=== PATIENT | female | born 1995 | race African-American/Black ===

== ENCOUNTER 2017-02-16 18:21 | Emergency (ER) | payer SELFPAY ==
[2017-02-16 19:58] LABS: #Monocytes 0.9 thou/uL (0.11-0.59); #Neutrophils 12.3 thou/uL (1.40-6.50); %Basophils 0.1 % (0.0-1.0); %Eosinophils 0.2 % (0.0-10.0); %Lymphocytes 7.2 % (21.0-51.0); %Monocytes 6.5 % (0.0-10.0); Hematocrit 41.1 % (36.0-47.0); Red Blood Cell (RBC) Count 4.26 mill/uL (4.20-5.40); White Blood Cell (WBC) Count 14.3 thou/uL (4.8-10.8)
[2017-02-16 20:24] LABS: ALT (SGPT) 11 U/L (8-55); AST (SGOT) 15 U/L (5-34); Alkaline Phosphatase 50 U/L (40-150); Anion Gap 13 mmol/L (10-20); BUN (Urea Nitrogen) 9 mg/dL (7.0-18.7); Bilirubin, Total 0.7 mg/dL (0.2-1.2); Calc. Creatinine Clearance 0 mL/min (70-130); Calcium 9.2 mg/dL (7.8-10.44); Carbon Dioxide 25 mmol/L (22-29); Chloride 100 mmol/L (98-107); Estimated GFR-MDRD Greater than 90; Globulin 3.4 g/dL (2.4-3.5); Lipase 22 U/L (8-78); Protein, Total 7.7 g/dL (6.0-8.3)
[2017-02-16 20:26] LABS: Bilirubin Negative (Negative); Blood, Urine Negative (Negative); Glucose, Urine (Dipstick) Negative (Negative); Ketone, Urine 40 mg/dL (Negative); Nitrite Negative (Negative); Protein, Urine (Dipstick) 100 mg/dL (Neg-Trace)
== END 2017-02-16 20:51 | disposition home or self-care (01) ==
LOC: ERS 18:21
DX: O99.281 Endocrine, nutritional and metabolic diseases complicating pregnancy, first trimester (principal); E86.0 Dehydration; O99.341 Other mental disorders complicating pregnancy, first trimester; F32.9 Major depressive disorder, single episode, unspecified; F41.9 Anxiety disorder, unspecified
CPT/HCPCS: 36415; 80053; 81003; 81015; 81025; 83690; 84703; 85025; 96360; 96361

== ENCOUNTER 2017-03-15 08:39 | Emergency (ER) | payer SELFPAY ==
[2017-03-15 10:55] LABS: Bilirubin Negative (Negative); Blood, Urine Negative (Negative); Glucose, Urine (Dipstick) Negative (Negative); Ketone, Urine Negative (Negative); Nitrite Negative (Negative); Protein, Urine (Dipstick) Negative (Neg-Trace); Urobilinogen 0.2 mg/dL (0.2-1.0)
== END 2017-03-15 10:37 | disposition home or self-care (01) ==
LOC: ERS 08:39
DX: O99.89 Other specified diseases and conditions complicating pregnancy, childbirth and the puerperium (principal); M54.9 Dorsalgia, unspecified; Z3A.11 11 weeks gestation of pregnancy; W01.0XXA Fall on same level from slipping, tripping and stumbling without subsequent striking against object, initial encounter
CPT/HCPCS: 81003

== ENCOUNTER 2017-05-09 11:34 | Emergency (ER) | payer OTHER, SELFPAY | END 2017-05-09 14:08 | disposition home or self-care (01) | LOC: ERS 11:34 | DX: O9A.212 Injury, poisoning and certain other consequences of external causes complicating pregnancy, second trimester (principal); S39.91XA Unspecified injury of abdomen, initial encounter; O99.344 Other mental disorders complicating childbirth; F41.9 Anxiety disorder, unspecified; F32.9 Major depressive disorder, single episode, unspecified; Z3A.20 20 weeks gestation of pregnancy ==

== ENCOUNTER 2017-06-16 16:57 | Day surgery (SDC) | payer OTHER ==
[2017-06-16 17:43] VITALS: BMI 22.1
--- NOTE | 2017-06-16 18:53 | PDOC.LDHP ---
Labor and Delivery H&P Chief complaint: contractions HPI: 22 y/o @ 25.1 WGA by LMP presents due to uncomfortable contractions that started last night around 8:30 pm. She reports that they are more frequent when she is up moving around and they decrease in frequency whenever she is resting. She has decreased movement whenever she is feeling these contractions, but has good movement whenever she rests. She has never had this happen before. Reports no LOF, no vaginal bleeding or discharge. She denies H/A, N/V, edema. Current gestational age (weeks): 25 (1 day) Due date: 09/28/17 Dating criteria: last menstrual period Grav: 4 Para: 0 OB History Details: 3 first trimester SAB's, two with the same father and one with a different father. The most recent one required a D&C. Current complications: none Abnormal US findings: No Past Medical History: Depression, Anxiety Current medications: pre-shawn vitamins Previous surgical history: dilation and curettage Allergies/Adverse Reactions: Allergies Allergy/AdvReac Type Severity Reaction Status Date / Time Penicillins Allergy Severe Verified 06/16/17 17:30 Hives Social history: none - Physical Exam Vital signs reviewed and normal: yes General: NAD Heart: RRR Lungs: CTAB Abdomen: gravid Extremeties: no edema FHT: category 1 (accels present), variability present (moderate) [place] contractions every: 5-7 minutes - Vaginal Exam cm dilated: 0 (0.5) Effacement: 50% Station: 0 - OB Labs Blood type: unknown RH: unknown Antibody Screen: unknown HIV: unknown RPR: unknown HEPSAg: unknown 1 hour GCT: unknown 3 hour GTT: unknown GBS: unknown - Assessment Rule-out labor - Fibronectin -Cervical Length -Orally hydrate -External monitoring, toco - Plan Plan: observation in L&D
--- NOTE | 2017-06-16 19:07 | PDOC.EVN ---
Event Note - Event Note Event Note: Patient in Triage in L&D, as a clinic patient. Patient first seen by the Resident adjudication specialist. Chief complaint: possible contractions. HPI: 22 yo [id number] with no HX incompetant cx presents now at 25 weeks 1 day with possible contractions. No recent trauma, no VB, no LOF. No fevers. Review of systems: as per HPI, after complete ROS performed. OB HX: SAB x 3 with D&C X 1 Allergies: PCN Medications: PNV Social: negative x 3 PHYSICAL Exam: afebrile and normaotensive NAD abdomen soft, NT, size appropriate CX: 0.5cm/40/0 (done after FFN) No VB Monitors: FHTS at 140s baseline, no decels. Variability per EGA. [place]: uterine irritability Assessment: Threatened extreme PTL vs discomforts of Plan: 1. FFN sent 2. CX not grossly dilated 3. Sono for EFW and cx length
[2017-06-16 19:35] LABS: FFN Internal QC Analyzer PASS (PASS); FFN Internal QC Cassette PASS (PASS); Fetal Fibronectin Negative (Negative)
--- NOTE | 2017-06-16 20:29 | PDOC.EVN ---
Event Note - Event Note Event Note: Staff lab check: FFN negative. Cervix 2.4cm. Ok for outpatient followup with [facility].
--- NOTE | 2017-06-16 20:54 | ULT ---
LIMITED OB ULTRASOUND 06/16/17 PROVIDED CLINICAL HISTORY: labor. FINDINGS: A single live intrauterine gestation is documented in cephalic presentation with heart rate of 158 be ats per minute documented. The placenta appears posteriorly located without evidence for previa. Amni otic fluid is not quantified but appears qualitatively normal. Cervical length measures approximatel y 2.4 cm. There is no evidence for cervical funneling. Estimated gestational age based on today's examination is 25 weeks, 1 day. Estimated weight is 792 +/- 117 grams. BIOMETRY: BPD 25 weeks, 6 days Head circumference 25 weeks, 5 days Abdominal circumference 25 weeks, 2 days Femur length 25 weeks, 0 days IMPRESSION: Single live intrauterine gestation, 25 weeks, 3 days by ultrasound. The cervix appears shortened with out evidence for funneling. POS: [facility]
== END 2017-06-16 20:30 | disposition home or self-care (01) ==
LOC: L&D/OP 16:57
PROVIDERS: ATTEND Obstetrics & Gynecology
DX: O47.02 False labor before 37 completed weeks of gestation, second trimester (principal); Z88.0 Allergy status to penicillin; Z3A.25 25 weeks gestation of pregnancy; Z79.899 Other long term (current) drug therapy; Z98.890 Other specified postprocedural states
CPT/HCPCS: 76815; 82731; 99282

== ENCOUNTER → 2017-06-19 | Day surgery (SDC) | payer OTHER ==
[~2017-06-19] MED LIST: FLU VACC QS2017-18 36 mo. & older 0.5 ML SYRINGE IM ONE
[2017-06-19 15:44] VITALS: BMI 22.1
--- NOTE | 2017-06-19 16:56 | PDOC.LDHP ---
Labor and Delivery H&P Chief complaint: contractions HPI: 22 yo @ 25.4 WGA by LMP presents due to contractions that started at approximately 14:30 today. She states the contractions have been roughly every 2 -5 minutes and are uncomfortable. She has noted movement that has been normal. She states that this has happened before on 06/16/17 when she came to the hospital for evaluation. She denies vaginal bleeding. She does note some vaginal discharge that was enough to wet her underwear. She denies any long standing vaginal discharge. She denies headache, vision changes, or edema. She does note that she has hyperemesis and vomiting for her is normal. No other concerns this am. Current gestational age (weeks): 25 (4) Due date: 09/28/17 Dating criteria: last menstrual period Grav: 4 Para: 0 OB History Details: 3 first trimester SAB. Most recent one required a D&C Current complications: none Abnormal US findings: No Past Medical History: Anxiety, Depression Current medications: pre- vitamins Previous surgical history: dilation and curettage Social history: none - Physical Exam Vital signs reviewed and normal: yes General: NAD, resting Heart: RRR Lungs: nonlabored breathing Abdomen: gravid Extremeties: no edema FHT: category 1 [place] contractions every: 5 minutes - OB Labs Blood type: unknown RH: unknown Antibody Screen: unknown HIV: unknown RPR: unknown HEPSAg: unknown 1 hour GCT: unknown 3 hour GTT: unknown GBS: unknown Urine drug screen: not done - Assessment Rule out labor -Will not repeat fibronectin since completed on 06/16 -Will not complete cervical length as completed on 06/16 -Orally hydrate and feed -UA -VP3 -External monitoring -Will cervical check after other tests. - Plan Plan: observation in L&D <Markie Mcclelland - Last Filed: 06/19/17 16:54> <Cruz Hernandez - Last Filed: 06/19/17 21:09> Allergies/Adverse Reactions: Allergies Allergy/AdvReac Type Severity Reaction Status Date / Time Penicillins Allergy Severe Verified 06/19/17 15:40 Hives Attending Addendum - Attending Addendum I personally evaluated the patient and discussed the management with Dr. Mcclelland I agree with the History, Examination, Assessment and Plan documented above with any addition or exceptions noted below. Pt was admitted for SROM and onset of labor. Fetus cat 1 GBS neg <Cruz Hernandez - Last Filed: 06/19/17 21:09>
[2017-06-19 17:44] LABS: Bilirubin Negative (Negative); Blood, Urine Negative (Negative); Clarity CLOUDY (Clear); Glucose, Urine (Dipstick) 100 mg/dL (Negative); Leukocyte Negative (Negative); Nitrite Negative (Negative); Protein, Urine (Dipstick) Negative (Neg-Trace); Specific Gravity, Urine 1.008 (1.002-1.036); Urobilinogen 0.2 mg/dL (0.2-1.0)
[2017-06-19 17:46] LABS: Pathc Cast-AUWi Flag 0.13 (0-2.49)
[2017-06-19 17:59] LABS: Bacteria/HPF 1+ HPF (None Seen); Hyaline Casts/LPF NONE SEEN LPF (0-3 Hyaline); RBC/HPF None Seen HPF (0-3); Squamous Epithelial 0-3 HPF (0-3); WBC/HPF 0-3 HPF (0-3)
== END | disposition home or self-care (01) ==
LOC: L&D/OP 15:11
PROVIDERS: ATTEND Obstetrics & Gynecology
DX: O60.02 Preterm labor without delivery, second trimester (principal); O99.342 Other mental disorders complicating pregnancy, second trimester; F41.9 Anxiety disorder, unspecified; F32.9 Major depressive disorder, single episode, unspecified; Z3A.25 25 weeks gestation of pregnancy; Z88.0 Allergy status to penicillin; Z79.899 Other long term (current) drug therapy; Z98.890 Other specified postprocedural states
CPT/HCPCS: 81001; 87086; 87480; 87510; 87660; 99284

== ENCOUNTER 2017-07-28 13:31 | Day surgery (SDC) | payer OTHER ==
[2017-07-28] MEDS ORDERED: Ondansetron ODT 8 MG TAB SL PRN (14:34)
[2017-07-28] MEDS ORDERED: Ondansetron HCl/PF 4 MG/2 ML Vial IVP PRN (14:34)
[2017-07-28] MEDS: Lactated Ringer's 1,000 ML IV SCH ×2 (14:35→15:30)
[2017-07-28] MEDS ORDERED: Betamet Acet/Betamet Na Ph 30 MG/5 ML VIAL IM SCH (14:45)
--- NOTE | 2017-07-28 14:57 | PDOC.LDHP ---
Labor and Delivery H&P Chief complaint: contractions, loss of fluid HPI: Pt c/o stressful "episode" at home this morning (pt will not provide additional details), after which she took a long walk. During this time, she began experiencing severe lower pelvic pain/vaginal pressure along with regular contractions. Symptoms associated with leakage of clear fluid. Denies dysuria, denies foul smelling vaginal discharge, denies recent intercourse. States that she has had issues with nausea over the past several weeks that has resulted in a 8-10 lb weight loss (128 lb @ 28 wk, 120 lb today). She tried diclegis but thought that it made her feel worse and has been scared to take Zofran fearing that it will have a similar effect. Pt freely admits to frequent marajuana use and states that she uses it for her nausea. Current gestational age (weeks): 31 (1 day) Dating criteria: last menstrual period (C/w 15.2 wk sono) Grav: 4 Para: 0 (0030) OB History Details: Hx of SAB x 3 w/ negative APLS workup; same FOB Current complications: other (H/o shortened cervix -- cervical length 2.4cm on 06/16/17 (24 wks); vaginal progesterone not given b/c beyond 24 wks when noted Mild anemia) Abnormal US findings: No Past Medical History: Previous h/o depression H/o STI in 2016 with neg JAIME Current medications: pre- vitamins Previous surgical history: other (D&C x 1) Social history: drug use (THC) - Physical Exam Vital signs reviewed and normal: yes General: other (mild distress; thin appearing) Heart: RRR Lungs: CTAB Abdomen: gravid Extremeties: no edema FHT: category 1 (baselin 150 bpm with accelerations), variability present ( moderate) [place] contractions every: 2-4 min - Vaginal Exam cm dilated: 1 Effacement: 75% (75-80%) Station: 0 - OB Labs Blood type: O RH: positive Antibody Screen: negative HIV: negative RPR: negative HEPSAg: negative 1 hour GCT: negative GBS: unknown Urine drug screen: not done Rubella: immune Additional Labs: Td given 07/22/17 - Assessment L&D Assessment: labor (Possible) - Plan Plan: observation in L&D -: 22 yo @ 31.1 by LMP/15.2 wk sono here for PTL r/o. 1) Place in observation in L&D -FFN, amniosure, VP3, UA, GC/CT, UDS all pending -No obvious pooling or other findings on SSE -Symptomatic management with Zofran and IVF -IV betamethasone for lung protection -Consider tocolysis and Mg for neuroprotection if FFN positive and/or cervical change progressing <Eldon Connors - Last Filed: 07/28/17 14:50> <Cruz Hernandez - Last Filed: 07/29/17 07:31> Allergies/Adverse Reactions: Allergies Allergy/AdvReac Type Severity Reaction Status Date / Time Penicillins Allergy Severe Verified 07/28/17 14:53 Hives Attending Addendum - Attending Addendum Date/Time: 07/29/17727 I personally evaluated the patient and discussed the management with Dr. Connors I agree with the History, Examination, Assessment and Plan documented above with any addition or exceptions noted below. FFN is neg, VP3 neg, ua neg. CL 1.2 cm. Pt felt much better after hydration and zofran. UCx spontaneously resolving. Pt d/cd home. Will return tomorrow for 2nd dose bmtz <Cruz Hernandez - Last Filed: 07/29/17 07:31>
[2017-07-28 14:58] VITALS: BMI 21.9
[2017-07-28 15:09] LABS: Amnisure Internal Control QC ACCEPTABLE (ACCEPTABLE); Amnisure Test No Membranes Rupture (No Rupture)
[2017-07-28 15:16] VITALS: BP 144/93; TEMP 98.6
[2017-07-28 15:29] LABS: FFN Internal QC Analyzer PASS (PASS); FFN Internal QC Cassette PASS (PASS); Fetal Fibronectin Negative (Negative)
[2017-07-28 15:57] LABS: Bilirubin Negative (Negative); Blood, Urine Negative (Negative); Clarity CLEAR (Clear); Glucose, Urine (Dipstick) Negative (Negative); Leukocyte Negative (Negative); Nitrite Negative (Negative); Protein, Urine (Dipstick) Negative (Neg-Trace); Specific Gravity, Urine 1.007 (1.002-1.036); Urobilinogen 0.2 mg/dL (0.2-1.0); pH, Urine 7.5 (5.0-9.0)
[2017-07-28 15:59] LABS: Bacteria/HPF None Seen HPF (None Seen); Hyaline Casts/LPF 0-3 HYALINE CAST LPF (0-3 Hyaline); RBC/HPF 0-3 HPF (0-3); Squamous Epithelial 0-3 HPF (0-3); WBC/HPF 0-3 HPF (0-3)
[2017-07-28 16:08] LABS: Amphetamine Not Detected (NotDetected); Barbiturates Screen Not Detected (NotDetected); Benzodiazepine Screen Not Detected (NotDetected); Cocaine Metabolite Screen Not Detected (NotDetected); Medtox Control Line Valid? VALID (VALID); Medtox Reader # READER 1; Methadone Not Detected (NotDetected); Methamphetamine Not Detected (NotDetected); Opiate Screen Not Detected (NotDetected); Oxycodone Screen Not Detected (NotDetected); Phencyclidine (PCP) Not Detected (NotDetected); THC/Cannabinoid Screen Detected (NotDetected); Tricyclic Screen Not Detected (NotDetected)
[2017-07-28] MEDS ORDERED: Lactated Ringer's 1,000 ML IV SCH (16:15)
[2017-07-28] MEDS ORDERED: FLU VACC QS2017-18 36 mo. & older 0.5 ML SYRINGE IM ONE (16:30)
--- NOTE | 2017-07-28 16:33 | ULT ---
OB ULTRASOUND: HISTORY: Uterine contractions, leaking fluid. FINDINGS: A single live intrauterine gestation is seen with measurements corresponding to estimated gestational age of 32 weeks 0 days and [place] at 09/22/17. The estimated weight measures 1717 gm of 3.13 ounce s. measurements are as follows: BPD 8.16 cm, 32 weeks 6 days HC 29.83 cm, 33 weeks 0 days AC 26.65 cm, 30 weeks 5 days FL 5.92 cm, 30 weeks 6 days heart rate measures 152 b.p.m. MAL measures 8 cm. The placenta is posterior fundal without pl acenta previa. Cervix measures 1.2 cm in length. There is probable swelling in the internal os. IMPRESSION: 1. Single live intrauterine gestation of 32 weeks 0 days and estimated date of delivery at 09/22/17. 2. Amniotic fluid index is 8 cm. 3. Cervical length is 1.2 cm. POS: [facility]
== END 2017-07-28 17:48 | disposition home or self-care (01) ==
LOC: L&D/OP 13:31
PROVIDERS: ATTEND Obstetrics & Gynecology
DX: O47.03 False labor before 37 completed weeks of gestation, third trimester (principal); O99.89 Other specified diseases and conditions complicating pregnancy, childbirth and the puerperium; N89.8 Other specified noninflammatory disorders of vagina; R10.2 Pelvic and perineal pain; R10.9 Unspecified abdominal pain; O26.873 Cervical shortening, third trimester; O99.343 Other mental disorders complicating pregnancy, third trimester; F32.9 Major depressive disorder, single episode, unspecified; Z3A.31 31 weeks gestation of pregnancy; Z79.899 Other long term (current) drug therapy; Z88.0 Allergy status to penicillin
CPT/HCPCS: 76816; 80306; 81001; 82731; 84112; 87081; 87480; 87491; 87510; 87591; 87660; J0702; J2405

== ENCOUNTER → 2017-07-29 | Day surgery (SDC) | payer OTHER ==
[2017-07-29 15:16] VITALS: BMI 21.9
== END ==
LOC: L&D/OP 14:48
PROVIDERS: ATTEND Obstetrics & Gynecology
DX: O09.219 Supervision of pregnancy with history of pre-term labor, unspecified trimester (principal); O26.879 Cervical shortening, unspecified trimester; Z3A.00 Weeks of gestation of pregnancy not specified; Z88.0 Allergy status to penicillin

== ENCOUNTER 2017-08-28 07:06 | Inpatient (IN) | payer OTHER ==
[2017-08-28 07:59] VITALS: BMI 22.8
[2017-08-28] MEDS ORDERED: Diphenoxylate HCl/Atropine Tablet PO PRN ×2 (08:11)
[2017-08-28] MEDS ORDERED: HYDROcodone/Acetaminophen 5/325 mg Tablet PO PRN ×2 (08:11)
[2017-08-28] MEDS ORDERED: Promethazine HCl 25 MG/ML VIAL IM PRN (08:11)
[2017-08-28] MEDS ORDERED: Ibuprofen 800 MG TAB PO PRN (08:11)
[2017-08-28] MEDS ORDERED: Ondansetron HCl/PF 4 MG/2 ML Vial IVP PRN (08:11)
[2017-08-28] MEDS ORDERED: Carboprost 250 MCG/ML AMP IM PRN (08:11)
[2017-08-28] MEDS ORDERED: Lidocaine 1% (PF) 30 ML VIAL SC PRN (08:11)
[2017-08-28] MEDS ORDERED: LR 500 ML/Oxytocin 10 units 500 ML IV SCH (08:15)
[2017-08-28 08:18] LABS: Hemoglobin 12.1 g/dL (12.0-16.0); Mean Corpuscular Hemoglobin 31.8 pg (27.0-31.0); Mean Corpuscular Volume 93.3 fl (81.0-99.0); Mean Platelet Volume 7.5 fL (7.4-10.4); Platelet Count 291 thou/uL (130-400); RBC Distribution Width 12.2 % (11.5-14.5); Red Blood Cell (RBC) Count 3.82 mill/uL (4.20-5.40); White Blood Cell (WBC) Count 12.1 thou/uL (4.8-10.8)
[2017-08-28] MEDS ORDERED: CEFAZOLIN/Water 2 GM/20 ML SYRINGE ONE (08:23)
[2017-08-28] MEDS ORDERED: Bicitra 30 ML UDCUP ONE (08:24)
[2017-08-28 08:47] LABS: HBSAg Index 0.22 S/CO (0-0.99); Hep B Surf Ag Non-Reactive S/CO (NonReactive); Syphilis Antibody Nonreactive (Nonreactive); Syphilis Antibody Index 0.05 S/CO (<1.00 Non-Reactive)
--- NOTE | 2017-08-28 09:16 | PDOC.LDHP ---
Labor and Delivery H&P Chief complaint: contractions, loss of fluid HPI: 22 yo @ 35w4d by LMP c/w 15w2d US. She states last night she had intercourse with her significant other and this morning she woke up around 06: 45 to a large gush of fluid. She states she then began feeling contractions after that and she came to the hospital. She denies vision changes, headaches, and lower extremity edema. She admits to movement and no other vaginal discharge besides the fluid. She also notes no vaginal bleeding. No other complaints today. Current gestational age (weeks): 35 Dating criteria: last menstrual period, first trimester ultrasound Grav: 4 Para: 0 OB History Details: - 3 Spontaneous abortions - 1 D&C - Incompetent cervix Current complications: none Abnormal US findings: No Past Medical History: None Current medications: pre-shawn vitamins Previous surgical history: dilation and curettage (x1) Allergies/Adverse Reactions: Allergies Allergy/AdvReac Type Severity Reaction Status Date / Time Penicillins Allergy Severe Verified 07/29/17 15:15 Hives Social history: none - Physical Exam Vital signs reviewed and normal: yes General: NAD, breathing through contractions Heart: RRR Lungs: nonlabored breathing Abdomen: gravid Extremeties: no edema FHT: category 1 (Moderate variability, Baseline 150s, Positive accellerations, No decelerations.) - Vaginal Exam cm dilated: 4 Effacement: 100% Station: 1+ - OB Labs Blood type: O RH: positive Antibody Screen: negative HIV: negative RPR: negative HEPSAg: negative GBS: positive Urine drug screen: not done Rubella: immune - Assessment 1. Pre-term in labor - Will continue External monitoring - Continue q4H checks - Recheck HIV - Will make treatment changes as appropriate 2. GBS+ - Anaphylaxis to penicillin - Will treat with Clindamycin Disposition: Admit to L&D - Plan Plan: admit to L&D, labor augmentation if indicated, GBS antibiotic prophylaxis
[2017-08-28] MEDS ORDERED: Clindamycin/D5W 900 mg/50 ml Premix Bag ONE (09:27)
[2017-08-28] MEDS ORDERED: Lactated Ringer's 1,000 ML IV SCH (09:45)
[2017-08-28 10:12] LABS: HIV (1/2) Antibody/Antigen Non-Reactive (NonReactive); HIV 1/2 INDEX 0.06 S/CO (<1.00)
--- NOTE | 2017-08-28 11:17 | PDOC.LDPN ---
Labor & Delivery Progress Note - Objective Vital signs reviewed and normal: yes General: NAD, breathing through contractions SVE: 7 Effacement: 100% Station: 0 FHT: category 1, variability present (+accels, no decels) [place] contractions every: q2-3m Plan: continue plan of care (clindamycin for gbs+)
[2017-08-28 12:24] LABS: Amphetamine Not Detected (NotDetected); Barbiturates Screen Not Detected (NotDetected); Benzodiazepine Screen Not Detected (NotDetected); Cocaine Metabolite Screen Not Detected (NotDetected); Medtox Control Line Valid? VALID (VALID); Medtox Reader # READER 4; Methadone Not Detected (NotDetected); Methamphetamine Not Detected (NotDetected); Opiate Screen Not Detected (NotDetected); Oxycodone Screen Not Detected (NotDetected); Phencyclidine (PCP) Not Detected (NotDetected); THC/Cannabinoid Screen Detected (NotDetected); Tricyclic Screen Not Detected (NotDetected)
--- NOTE | 2017-08-28 12:27 | PDOC.LDPN ---
Labor & Delivery Progress Note - Subjective Subjective: painful contractions, loss of fluid (s/p LOF around 6:45am this morning) - Objective Vital signs reviewed and normal: yes General: resting, breathing through contractions Uterine fundus: palpable contractions SVE: Per nurse 7.5/100/+1 @ 11:51am FHT: category 1, variability present AROM: clear fluid Plan: continue plan of care -: This is a 22 yo @ 35w4d presents w/ LOF in active labor. 1) IUP in Active Labor - Continue labor management. Patient still does not want epidural. Had steroids x2 doses 07/2017. Continue current plan of care. Cat. I strip. 2) GBS + : S/p Clindamycin x1.
[2017-08-28] MEDS: LR / Pitocin 40 units/1000 ml 1,000 ML IV PRN ×2 (13:05→14:54)
[2017-08-28] MEDS ORDERED: CEFAZOLIN 1 GM in Sodium Chloride 0.9% 100 ML IVPB SCH (14:00)
[2017-08-28] MEDS ORDERED: CEFAZOLIN 1 GM, Syringe 2.5 ML in Sterile Water 7.5 ML SLOW IVP SCH (14:00)
[2017-08-28] MEDS ORDERED: Clindamycin/D5W 900 MG in Premix Bag 1 BAG IVPB SCH (14:00)
--- NOTE | 2017-08-28 15:40 | PDOC.OPDEL ---
OB Operative/Delivery Note Delivery Dr/Surgeon: Meena Merchant MD, Kamini George DO, Farzad Dobbs MD Pre-Delivery Diagnosis: active labor Procedure/Post Delivery Dx: spontaneous vaginal delivery (@ 1258 on 08/28/2017) Weeks gestation: 35 (4) Anesthesia: none - Findings A Sex: male Weight: 2.59 kg - 1 min: 8 - 5 min: 9 - Additional Findings/Plan Placenta delivered: spontaneous Repaired Obstetrical Laceration: none Estimated blood loss: 150 mL Compilations/Other Findings: Viable male infant delivered over intact perineum in OA position. Anterior shoulder and then remainder of the body delivered. Cord was clamped after 2 minute delay and was cut. 3 vessel cord was noted. Placenta delivered via the horvath mechanism and was intact. Fundal massage was performed and the fundus was firm. Patient went to after routine recovery. Post delivery plan: routine recovery
[2017-08-28] MEDS ORDERED: Milk Of Magnesia 30 ML UDCUP PO PRN (16:05)
[2017-08-28] MEDS ORDERED: Bisacodyl 10 MG SUPP PR PRN (16:05)
[2017-08-28] MEDS ORDERED: Adacel (T-DAP) 0.5 ML VIAL IM ONE (16:05)
[2017-08-28] MEDS ORDERED: LR / Pitocin 40 units/1000 ml 1,000 ML IV SCH (16:05)
[2017-08-28] MEDS ORDERED: Ibuprofen 800 MG TAB PO SCH (16:30)
[2017-08-28] MEDS: Ferrous Sulfate 325 MG TAB PO SCH (16:31)
[2017-08-28] MEDS: Docusate Calcium (SURFAK) 240 MG CAP PO SCH (23:31)
[2017-08-28] MEDS: Ibuprofen 800 MG TAB PO SCH (23:31)
[2017-08-29 05:31] LABS: Mean Corpuscular HGB CONC 34.2 g/dL (32.0-36.0); Mean Corpuscular Hemoglobin 31.6 pg (27.0-31.0); Mean Corpuscular Volume 92.5 fl (81.0-99.0); Mean Platelet Volume 7.3 fL (7.4-10.4); Platelet Count 278 thou/uL (130-400); RBC Distribution Width 12.3 % (11.5-14.5); Red Blood Cell (RBC) Count 3.49 mill/uL (4.20-5.40); White Blood Cell (WBC) Count 19.3 thou/uL (4.8-10.8)
[2017-08-29] MEDS: Ibuprofen 800 MG TAB PO SCH (06:42)
--- NOTE | 2017-08-29 06:53 | PDOC.PP ---
Post Progress Note Post Day #: 1 Subjective: Patient had a good night. No new chest pain, sob, vision changes, headaches, excessive bleeding. She was informed of a positive UDS for marijuana. No other complaints today. PO intake tolerated: yes Flatus: yes Ambulation: yes Vital Signs (12 hours) Temp Pulse Resp BP Pulse Ox 08/29/17 04:32 98.4 F 74 18 104/63 08/28/17 23:31 97.9 F 91 18 119/62 08/28/17 20:10 98.9 F 103 H 20 134/85 99 Weight Weight 56.699 kg - Physical Examination General: NAD Cardiovascular: no m/r/g, RRR Respiratory: clear to auscultation bilaterally, non-labored breathing Abdominal: + bowel sounds, lochia, no distention, appropriately TTP Extremities: negative homans (B) Skin: no rash Neurological: no gross focal deficits Psychiatric: A&Ox3, normal affect Result Diagrams: 08/29/17 04:19 Additional Labs: Post Labs Hep Bs Antigen Non-Reactive S/CO (NonReactive) 08/28/17 08:00 (1) delivery, delivered Status: Acute (2) Marijuana use Code(s): F12.90 - CANNABIS USE, UNSPECIFIED, UNCOMPLICATED Status: Acute - Assessment/Plan 1. delivery, delivered - H&H stable this am - Patient will be discharged today for follow up at [facility] 2. Marijuana positive UDS - Recommend cessation - monitor infant for signs/symptoms - CPS contacted Disposition: Will discharge patient today.
[2017-08-29] MEDS: Ferrous Sulfate 325 MG TAB PO SCH (08:35)
[2017-08-29] MEDS: Docusate Calcium (SURFAK) 240 MG CAP PO SCH (09:03)
[2017-08-29 09:04] VITALS: BP 115/54; TEMP 98.7
== END 2017-08-29 12:40 | disposition home or self-care (01) | DRG 775 ==
LOC: L&D/OP 07:06 → L&D 08:04 → 3SW 16:02
PROVIDERS: ADMIT Obstetrics & Gynecology; ATTEND Obstetrics & Gynecology
PROC: 10E0XZZ Delivery of Products of Conception, External Approach (ICD-10-PCS; principal; 2017-08-28)
DX: Z86.19 Personal history of other infectious and parasitic diseases; Z88.0 Allergy status to penicillin; Z37.0 Single live birth; O26.873 Cervical shortening, third trimester; O99.324 Drug use complicating childbirth; O60.14X0 Preterm labor third trimester with preterm delivery third trimester, not applicable or unspecified; F12.90 Cannabis use, unspecified, uncomplicated; O26.23 Pregnancy care for patient with recurrent pregnancy loss, third trimester; O99.824 Streptococcus B carrier state complicating childbirth; Z3A.35 35 weeks gestation of pregnancy
CPT/HCPCS: 36415; 80306; 85027; 86780; 87340; 87389; 99285; A4216; J0595; J0690; J2001; J3490

== ENCOUNTER 2017-10-22 16:42 | Emergency (ER) | payer OTHER ==
[2017-10-22] MEDS ORDERED: Acetaminophen 500 MG TAB ONE (17:13)
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
== END 2017-10-22 17:21 | disposition home or self-care (01) ==
LOC: ERS 16:42
DX: M25.512 Pain in left shoulder (principal); F41.9 Anxiety disorder, unspecified; F32.9 Major depressive disorder, single episode, unspecified

== ENCOUNTER 2018-04-04 14:26 | Emergency (ER) | payer OTHER, SELFPAY ==
[2018-04-04] MEDS ORDERED: Bacitracin Zinc 1 Packet ONE (15:55)
== END 2018-04-04 16:00 | disposition home or self-care (01) ==
LOC: ERS 14:26
DX: S61.214A Laceration without foreign body of right ring finger without damage to nail, initial encounter (principal); F41.9 Anxiety disorder, unspecified; F32.9 Major depressive disorder, single episode, unspecified; W25.XXXA Contact with sharp glass, initial encounter
CPT/HCPCS: 99282

== ENCOUNTER 2018-11-06 14:24 | Emergency (ER) | payer SELFPAY ==
[2018-11-06] MEDS ORDERED: HYDROcodone/Acetaminophen 10/325 mg Tablet ONE (15:19)
== END 2018-11-06 15:23 | disposition home or self-care (01) ==
LOC: ERS 14:24
DX: T24.212A Burn of second degree of left thigh, initial encounter (principal); T23.221A Burn of second degree of single right finger (nail) except thumb, initial encounter; T25.112A Burn of first degree of left ankle, initial encounter; F41.9 Anxiety disorder, unspecified; F32.9 Major depressive disorder, single episode, unspecified; X12.XXXA Contact with other hot fluids, initial encounter

== ENCOUNTER 2018-11-11 01:21 | Emergency (ER) | payer SELFPAY | END 2018-11-11 02:03 | disposition left against medical advice (07) | LOC: ERS 01:21 | DX: Z53.21 Procedure and treatment not carried out due to patient leaving prior to being seen by health care provider (principal) ==

== ENCOUNTER 2019-01-13 19:10 | Emergency (ER) | payer SELFPAY ==
[2019-01-13 19:50] LABS: Bacteria/HPF None Seen HPF (None Seen); Bilirubin Negative (Negative); Blood, Urine Negative (Negative); Clarity Clear (Clear); Glucose, Urine (Dipstick) Normal (Negative); Leukocyte 25 Leu/uL (Negative); Mucous/LPF 2+ LPF (<2+); Nitrite Negative (Negative); Protein, Urine (Dipstick) 100 mg/dL (Neg-Trace)
[2019-01-13 19:52] LABS: Pregnancy Test - Urine (BHCG) Negative (Negative); Pregu Control Background? CLEAR/WHITE (CLR/WHITE); Pregu Control Bar Appear? YES (CONTROL BAR); Specific Gravity 1.043 (1.002-1.036)
[2019-01-13 19:53] LABS: #Eosinphils 0.1 thou/uL (0.0-0.7); #Lymphocytes 2.2 thou/uL (1.20-3.40); #Monocytes 0.6 thou/uL (0.11-0.59); #Neutrophils 9.1 thou/uL (1.40-6.50); %Basophils 0.3 % (0.0-1.0); %Eosinophils 1.1 % (0.0-10.0); %Monocytes 4.8 % (0.0-10.0); %Neutrophils 75.8 % (42.0-75.0); Hemoglobin 12.7 g/dL (12.0-16.0); Mean Corpuscular HGB CONC 34.7 g/dL (32.0-36.0); Mean Corpuscular Hemoglobin 32.9 pg (27.0-31.0); Mean Corpuscular Volume 94.6 fL (78.0-98.0); Mean Platelet Volume 7.4 fL (7.4-10.4); Platelet Count 268 thou/uL (130-400); RBC Distribution Width 10.8 % (11.5-14.5); Red Blood Cell (RBC) Count 3.87 mill/uL (4.20-5.40)
[2019-01-13 20:13] LABS: ALT (SGPT) 8 U/L (8-55); AST (SGOT) 15 U/L (5-34); Albumin 4.4 g/dL (3.5-5.0); Alkaline Phosphatase 60 U/L (40-150); Anion Gap 13 mmol/L (10-20); BUN (Urea Nitrogen) 7 mg/dL (7.0-18.7); Bilirubin, Total 1.1 mg/dL (0.2-1.2); Calc. Creatinine Clearance 0 mL/min (70-130); Calcium 9.5 mg/dL (7.8-10.44); Carbon Dioxide 24 mmol/L (22-29); Chloride 103 mmol/L (98-107); Estimated GFR-MDRD Greater than 90; Globulin 2.7 g/dL (2.4-3.5); Glucose 109 mg/dL (70-105); Lipase 9 U/L (8-78); Potassium 3.4 mmol/L (3.5-5.1); Protein, Total 7.1 g/dL (6.0-8.3); Sodium 137 mmol/L (136-145)
--- NOTE | 2019-01-13 21:44 | ULT ---
Exam: Right upper quadrant ultrasound: HISTORY: Right upper quadrant abdominal pain for COMPARISON: None FINDINGS: Liver: Within normal limits Gallbladder: Contracted limiting evaluation. No obvious gallbladder calculus is seen. Common bile duct: The common duct is normal in caliber measuring 0.3 cm in diameter. Pancreas: Limited visualized portions of the pancreas demonstrate a normal sonographic appearance. Right kidney: Right kidney demonstrates a normal sonographic appearance. The right kidney measures 1 2.7 cm in length. IVC: The visualized IVC demonstrates a normal sonographic appearance. Imaging in the right lower quadrant was performed. A anechoic structure measuring 2.3 cm is present. Dermatologist And Dermatopathologist notes that this is patient's right ovary confines are likely due to small right ovarian cyst.. Color flow evaluation was not provided. The appendix is not visualized as there is shadowing in the right lower quadrant. Appendicitis cannot be excluded based on this exam. IMPRESSION: 1. Right upper quadrant ultrasound is within normal limits, and no gallbladder calculi are seen. 2. Anechoic cystic lesion right lower quadrant, and this is reported to be patient's right ovary. Fin dings are suggestive of a small right ovarian cyst. 3. Nonvisualization of the appendix. Appendicitis cannot be excluded based on this exam.
== END 2019-01-13 22:20 | disposition home or self-care (01) ==
LOC: ERS 19:10
DX: N83.201 Unspecified ovarian cyst, right side (principal); F41.9 Anxiety disorder, unspecified; F32.9 Major depressive disorder, single episode, unspecified; F17.210 Nicotine dependence, cigarettes, uncomplicated
CPT/HCPCS: 76705; 80053; 81003; 81015; 81025; 83690; 85025; 87086

== ENCOUNTER 2020-03-09 01:38 | Emergency (ER) | payer SELFPAY ==
[2020-03-09 02:18] LABS: Hemoglobin 13.9 g/dL (12.0-16.0); Mean Corpuscular HGB CONC 34.3 g/dL (32.0-36.0); Mean Corpuscular Hemoglobin 33.6 pg (27.0-31.0); Mean Corpuscular Volume 97.9 fL (78.0-98.0); Mean Platelet Volume 7.5 fL (7.4-10.4); Platelet Count 334 thou/uL (130-400); RBC Distribution Width 11.3 % (11.5-14.5); Red Blood Cell (RBC) Count 4.14 mill/uL (4.20-5.40); White Blood Cell (WBC) Count 26.8 thou/uL (4.8-10.8)
[2020-03-09 02:30] LABS: Acetaminophen Less than 6.0 mcg/mL (10.0-30.0); Alcohol Less than 10 mg/dL (Less than 10); Salicylate Less than 8.0 mg/dL (15.0-30.0)
[2020-03-09 02:31] LABS: ALT (SGPT) 13 U/L (8-55); AST (SGOT) 26 U/L (5-34); Albumin 4.7 g/dL (3.5-5.0); Alkaline Phosphatase 57 U/L (40-110); Anion Gap 14 mmol/L (10-20); BUN (Urea Nitrogen) 8 mg/dL (7.0-18.7); Bilirubin, Total 0.7 mg/dL (0.2-1.2); Calc. Creatinine Clearance 0 mL/min (70-130); Calcium 9.7 mg/dL (7.8-10.44); Carbon Dioxide 23 mmol/L (22-29); Chloride 106 mmol/L (98-107); Estimated GFR-MDRD Greater than 90; Globulin 3.4 g/dL (2.4-3.5); Glucose 91 mg/dL (70-105); Potassium 3.3 mmol/L (3.5-5.1); Protein, Total 8.1 g/dL (6.0-8.3); Sodium 140 mmol/L (136-145)
[2020-03-09 02:41] LABS: Band 1 % (5-11); Lymphocytes 6 % (21-51); MDiff Complete? YES; Monocytes 1 % (0-10); Neutrophil 92 % (42-75); Platelet Morphology Comment Appears Adequate; RBC Morphology Normal
[2020-03-09 02:43] LABS: Bacteria/HPF 4+ HPF (None Seen); Bilirubin Negative (Negative); Blood, Urine Negative (Negative); Clarity Clear (Clear); Glucose, Urine (Dipstick) Normal (Negative); Ketone, Urine Negative (Negative); Leukocyte 500 Leu/uL (Negative); Mucous/LPF Rare LPF (<2+); Nitrite Negative (Negative); Protein, Urine (Dipstick) Negative (Neg-Trace); Specific Gravity, Urine 1.006 (1.002-1.036); Squamous Epithelial 0-3 HPF (0-3); Urobilinogen Normal mg/dL (Less than 2); WBC/HPF Greater than 50 HPF (0-3)
[2020-03-09 02:52] LABS: Amphetamine Not Detected (NotDetected); Barbiturates Screen Not Detected (NotDetected); Benzodiazepine Screen Not Detected (NotDetected); Cocaine Metabolite Screen Not Detected (NotDetected); Medtox Control Line Valid? VALID (VALID); Medtox Reader # READER 1; Methadone Not Detected (NotDetected); Methamphetamine Not Detected (NotDetected); Opiate Screen Not Detected (NotDetected); Oxycodone Screen Not Detected (NotDetected); Phencyclidine (PCP) Not Detected (NotDetected); THC/Cannabinoid Screen Detected (NotDetected); Tricyclic Screen Not Detected (NotDetected)
[2020-03-09 02:55] LABS: BHCG - Serum Negative (NEGATIVE); Pregs Control Background? CLEAR/WHITE (CLR/WHITE); Pregs Control Bar Appear? YES (CONTROL BAR)
[2020-03-09] MEDS ORDERED: Acetaminophen 500 MG TAB ONE ×2 (03:22→03:23)
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
[2020-03-09] MEDS ORDERED: Iopamidol 370 76% 100 ML VIAL ONE (09:57)
== END 2020-03-09 03:55 | disposition home or self-care (01) ==
LOC: ERS 01:38
DX: S40.011A Contusion of right shoulder, initial encounter (principal); S00.431A Contusion of right ear, initial encounter; S00.83XA Contusion of other part of head, initial encounter; F32.9 Major depressive disorder, single episode, unspecified; F17.210 Nicotine dependence, cigarettes, uncomplicated; Y04.8XXA Assault by other bodily force, initial encounter
CPT/HCPCS: 36415; 70450; 71045; 71260; 72125; 74177; 80053; 80306; 80307; 81003; 81015; 84703; 85025; 93005; Q9967

== ENCOUNTER 2021-01-25 10:39 | Emergency (ER) | payer SELFPAY | END 2021-01-25 11:32 | disposition left against medical advice (07) | LOC: ERS 10:39 | DX: Z53.21 Procedure and treatment not carried out due to patient leaving prior to being seen by health care provider (principal) ==

== ENCOUNTER 2021-07-11 06:03 | Emergency (ER) | payer OTHER, SELFPAY ==
[2021-07-11] MEDS ORDERED: Rabies Vaccine Human 2.5 UNITS VIAL IM ONE (06:45)
== END 2021-07-11 07:40 | disposition home or self-care (01) ==
LOC: ERS 06:03
DX: S61.032A Puncture wound without foreign body of left thumb without damage to nail, initial encounter (principal); W54.0XXA Bitten by dog, initial encounter
CPT/HCPCS: 90376; 90471; 90675; 96372

== ENCOUNTER → 2021-07-18 | Emergency (ER) | payer SELFPAY ==
[~2021-07-18] MED LIST changes: -FLU VACC QS2017-18 36 mo. & older 0.5 ML SYRINGE IM ONE; +Rabies Vaccine Human 2.5 UNITS VIAL IM ONE
== END ==
LOC: ERS 23:30
DX: Z23 Encounter for immunization (principal)
CPT/HCPCS: 90471; 90675

== ENCOUNTER 2022-08-26 21:59 | Emergency (ER) | payer SELFPAY ==
[2022-08-26] MEDS ORDERED: Ketorolac Tromethamine 30 MG/ML VIAL ONE (23:39)
[2022-08-26 23:57] LABS: Bacteria/HPF None Seen HPF (None Seen); Bilirubin Negative (Negative); Blood, Urine Negative (Negative); Clarity Clear (Clear); Glucose, Urine (Dipstick) Normal (Negative); Ketone, Urine Trace mg/dL (Negative); Leukocyte 25 Leu/uL (Negative); Nitrite Negative (Negative); Protein, Urine (Dipstick) Negative (Neg-Trace); RBC/HPF 0-3 HPF (0-3); Specific Gravity, Urine 1.019 (1.002-1.036); Urobilinogen Normal mg/dL (Less than 2); WBC/HPF 0-3 HPF (0-3); pH, Urine 5.5 (5.0-9.0)
[2022-08-26 23:58] LABS: Pregnancy Test - Urine (BHCG) Negative (Negative); Pregu Control Background? CLEAR/WHITE (CLR/WHITE); Pregu Control Bar Appear? YES (CONTROL BAR); Specific Gravity 1.019 (1.002-1.036)
== END 2022-08-27 00:49 | disposition home or self-care (01) ==
LOC: ERS 21:59
DX: S00.81XA Abrasion of other part of head, initial encounter (principal); Y04.8XXA Assault by other bodily force, initial encounter
CPT/HCPCS: 70450; 70486; 71045; 72125; 81003; 81015; 81025; 87086; 96372; J1885

== ENCOUNTER 2022-09-06 18:27 | Emergency (ER) | payer SELFPAY ==
[2022-09-06] MEDS ORDERED: Dexameth. Sod Phosp. 10 MG/ML (CHEMO USE ONLY) ONE (18:41)
[2022-09-06] MEDS ORDERED: Ketorolac Tromethamine 30 MG/ML VIAL ONE (18:41)
== END 2022-09-06 18:53 | disposition home or self-care (01) ==
LOC: ERS 18:27
DX: J02.0 Streptococcal pharyngitis (principal)
CPT/HCPCS: 96372; 99282; J1100; J1885

== ENCOUNTER 2022-12-29 04:15 | Emergency (ER) | payer SELFPAY ==
[2022-12-29] MEDS ORDERED: cefTRIAXone (ROCEPHIN) 500 MG VIAL ONE (05:00)
[2022-12-29] MEDS ORDERED: Lidocaine 1% MPF 2 ML VIAL ONE (05:00)
== END 2022-12-29 05:22 | disposition home or self-care (01) ==
LOC: ERS 04:15
DX: Z11.3 Encounter for screening for infections with a predominantly sexual mode of transmission (principal)
CPT/HCPCS: 96372; 99283; J0696

== ENCOUNTER 2023-10-26 09:06 | Emergency (ER) | payer MEDICAID, OTHER | END 2023-10-26 10:30 | disposition home or self-care (01) | LOC: ERS 09:06 | DX: K04.7 Periapical abscess without sinus (principal); F17.210 Nicotine dependence, cigarettes, uncomplicated | CPT/HCPCS: 99282 ==